=== PATIENT | male | born 1950 | race Two or more races ===

== ENCOUNTER 2017-01-24 13:06 | Inpatient (IN) | payer MEDICARE, MEDICAID ==
[~2017-01-24] VITALS: Ht 172.7 cm; Wt 79.8 kg
[2017-01-24] MEDS ORDERED: IPRATROPIUM BROMIDE 0.5 MG/2.5 ML NEBU NEB ONE (13:28)
[2017-01-24] MEDS ORDERED: methylPREDNISolone SOD SUCC 40 MG/ML VIAL IV ONE (13:30)
[2017-01-24] MEDS ORDERED: ALBUTEROL SULFATE 2.5 MG/3 ML NEBU NEB ONE (13:30)
[2017-01-24] MEDS ORDERED: IV NORMAL SALINE 500 ML IV ONE (13:30)
[2017-01-24] MEDS ORDERED: methylPREDNISolone SOD SUCC 40 MG/ML VIAL ONE (13:52)
--- NOTE | 2017-01-24 14:12 | NUR ---
PT REFUSED ABG AND BLOOD WORK.
--- NOTE | 2017-01-24 14:12 | NUR ---
DR READ MAKE AWARE OF PT'S REFUSAL.
[2017-01-24] MEDS ORDERED: ACET325C PO (14:41)
[2017-01-24] MEDS ORDERED: GABA100C PO (14:41)
[2017-01-24] MEDS ORDERED: MULT1TAB73 PO (14:41)
[2017-01-24] MEDS ORDERED: LEVE250T2 PO (14:41)
[2017-01-24] MEDS ORDERED: ATOR40TA PO (14:41)
[2017-01-24] MEDS ORDERED: CARV12.5 PO (14:41)
[2017-01-24] MEDS ORDERED: [UNRECOGNIZED DRUG - CODE] PO (14:41)
[2017-01-24] MEDS ORDERED: FAMO20TA8 PO (14:41)
[2017-01-24] MEDS ORDERED: FURO-152 PO (14:41)
[2017-01-24] MEDS ORDERED: TAMS0.4C34 PO (14:41)
[2017-01-24] MEDS ORDERED: SACC250C PO (14:41)
[2017-01-24] MEDS ORDERED: CALC500T3 PO (14:41)
[2017-01-24] MEDS ORDERED: THIA100T13 PO (14:41)
[2017-01-24] MEDS ORDERED: BENA10TA2 PO (14:41)
[2017-01-24] MEDS ORDERED: INSU100V7 SQ (14:41)
[2017-01-24] MEDS ORDERED: MELA3TAB PO (14:41)
[2017-01-24] MEDS ORDERED: LOSA100T15 PO (14:41)
[2017-01-24] MEDS ORDERED: ACET325T53 PO (14:41)
[2017-01-24] MEDS ORDERED: CYAN500T2 PO (14:41)
[2017-01-24] MEDS ORDERED: HYDR-3326 PO (14:41)
--- NOTE | 2017-01-24 14:45 | NUR ---
PT PROVIDED SNACK
--- NOTE | 2017-01-24 16:00 | NUR ---
PT RESTING COMFORTABLY
--- NOTE | 2017-01-24 19:53 | NUR ---
Pt. admitted to TELE, under care of Dr. Bagley Belongs List completed
--- NOTE | 2017-01-24 19:55 | NUR ---
PT RECEIVED FROM ED, VIA [employer]. ORIENTED TO ROOM. A/OX2. ABLE TO MAKE NEEDS KNOWN. V/S STABLE. IN NO ACUTE DISTRESS. NO C/O PAIN AT THIS TIME. IV INTACT AND PATENT. ON RA, TOLERATING WELL. SINUS RHYTHM ON THE TELE MONITOR. SAFETY MEASURES IMPLEMENTED. CALL LIGHT WITHIN REACH.
[2017-01-24 21:07] VITALS: BP 156/92
[2017-01-24] MEDS: BLOOD SUGAR DIAGNOSTIC 1 EACH STRIP VI SCH (21:45)
[2017-01-24] MEDS ORDERED: ACETAMINOPHEN 325 MG TABLET PO PRN (21:45)
[2017-01-24] MEDS ORDERED: Medication Not On Formulary EA (Saccharomyces Boulardii (Florastor) 250 MG) PO SCH (21:45)
[2017-01-24] MEDS ORDERED: CALCIUM CARBONATE 500 MG TABLET PO PRN (21:45)
[2017-01-24] MEDS ORDERED: ALBUTEROL SULFATE 2.5 MG/ 0.5 ML NEBU NEB PRN (21:45)
[2017-01-24] MEDS ORDERED: ONDANSETRON 4 MG/2 ML VIAL IV PRN (21:45)
[2017-01-24] MEDS ORDERED: IPRATROPIUM BROMIDE 0.5 MG/2.5 ML NEBU NEB PRN (21:45)
[2017-01-24] MEDS ORDERED: DEXTROSE 50% 50 ML DISP.SYRIN IV PRN (21:45)
[2017-01-25 00:02] VITALS: BP 133/80
[2017-01-25] MEDS: HYDROCODONE/APAP 5-325MG TABLET PO PRN (04:24)
[2017-01-25] MEDS ORDERED: HYDROCODONE/APAP 5-325MG TABLET ONE (04:37)
[2017-01-25 04:53] VITALS: BP 127/71
--- NOTE | 2017-01-25 05:50 | NUR ---
END OF SHIFT NOTES. PT SLEPT WELL THROUGHOUT SHIFT. IN STABLE CONDITION. PT C/O LEFT SIDED PAIN AND BACK PAIN. ADMINISTERED PAIN MEDICATION ORDERED. SINUS RHYTHM ON TELE MONITOR. ALL NEEDS ATTENDED. SAFETY MAINTAINED. CALL LIGHT WITHIN REACH.
[2017-01-25] MEDS: BLOOD SUGAR DIAGNOSTIC 1 EACH STRIP VI SCH ×4 (06:17→20:47)
[2017-01-25 06:31] LABS: BASOPHILS % (AUTO) 0.2 % (0.0-2.0); HEMATOCRIT 38.3 % (36.7-47.1); LYMPHOCYTES # (AUTO) 1.1 K/uL (20.0-40.0); LYMPHOCYTES % (AUTO) 17.9 % (20.5-51.5); MEAN CORPUSCULAR HEMOGLOBIN 29.5 uug (23.8-33.4); MEAN CORPUSCULAR HGB CONC 34 g/dL (32.5-36.3); MONOCYTES # (AUTO) 0.4 K/uL (2.0-10.0); MONOCYTES % (AUTO) 5.9 % (0.0-11.0); NEUTROPHILS # (AUTO) 4.8 K/uL (1.8-8.9); PLATELET COUNT (AUTO) 227 K/uL (152-348); RED BLOOD CELL COUNT(AUTO) 4.41 MIL/uL (4.06-5.63); WHITE BLOOD COUNT (AUTO) 6.3 K/uL (3.6-10.2)
[2017-01-25 06:56] LABS: CREATININE 1.1 mg/dL (0.6-1.3); MAGNESIUM 2.1 mg/dL (1.8-2.4); PHOSPHOROUS 3.2 mg/dL (2.5-4.9); POTASSIUM 4.3 mmol/L (3.5-5.1)
[2017-01-25] MEDS: GABAPENTIN 100 MG CAPSULE PO SCH ×3 (08:10→16:37)
[2017-01-25] MEDS: THIAMINE HCL 100 MG TABLET PO SCH (08:10)
[2017-01-25] MEDS: FAMOTIDINE 20 MG TABLET PO SCH (08:10)
[2017-01-25] MEDS: CARVEDILOL 12.5 MG TABLET PO SCH ×2 (08:11→16:38)
[2017-01-25] MEDS: CYANOCOBALAMIN 1,000 MCG TABLET PO SCH (08:11)
[2017-01-25] MEDS: FUROSEMIDE 20 MG TABLET PO SCH (08:11)
[2017-01-25] MEDS: LOSARTAN POTASSIUM 50 MG TABLET PO SCH (08:11)
[2017-01-25] MEDS: LEVETIRACETAM 250 MG TABLET PO SCH ×2 (08:12→20:42)
[2017-01-25] MEDS: ACIDOPHILUS/BULGARICUS CHEW TAB PO SCH ×3 (08:12→16:42)
[2017-01-25] MEDS: INSULIN REGULAR, HUMAN 300 UNIT/3 ML VIAL SQ PRN ×3 (08:13→16:39)
[2017-01-25] MEDS: Z GUARD REMEDY PASTE 57 GM TUBE TOP PRN (08:15)
[2017-01-25] MEDS ORDERED: Medication Not On Formulary EA (Losartan Potassium 100 MG) PO SCH (09:00)
[2017-01-25] MEDS ORDERED: Medication Not On Formulary EA (Cyanocobalamin (Vitamin B-12) 500 MCG) PO SCH (09:00)
[2017-01-25 10:59] VITALS: BP 102/65
[2017-01-25 15:09] VITALS: BP 117/59
[2017-01-25 19:41] VITALS: BP 100/58
[2017-01-25 19:44] VITALS: BP 100/58
[2017-01-25] MEDS: MELATONIN 3 MG TABLET PO SCH (20:42)
[2017-01-25] MEDS: ATORVASTATIN 40 MG TABLET PO SCH (20:42)
[2017-01-25] MEDS: TAMSULOSIN HCL 0.4 MG CAP.SR.24H PO SCH (20:42)
[2017-01-25] MEDS: INSULIN REGULAR, HUMAN 300 UNITS/3 ML VIAL SQ PRN (20:49)
[2017-01-25] MEDS: BENAZEPRIL HCL 10 MG TABLET PO SCH (20:53)
[2017-01-25] MEDS: INSULIN DETEMIR 300 UNIT/3 ML CARTRIDGE SQ SCH (21:37)
[2017-01-26 06:14] VITALS: BP 141/48
[2017-01-26] MEDS: ACIDOPHILUS/BULGARICUS CHEW TAB PO SCH ×3 (07:25→15:57)
[2017-01-26] MEDS: INSULIN REGULAR, HUMAN 300 UNIT/3 ML VIAL SQ PRN ×3 (07:27→15:58)
--- NOTE | 2017-01-26 07:30 | NUR ---
PT RECEIVED IN BED AWAKE,NO C/O PAIN NOTED,V/S ARE STABLE.CALL LIGHT WITH IN REACH.
[2017-01-26] MEDS: BLOOD SUGAR DIAGNOSTIC 1 EACH STRIP VI SCH ×5 (07:39→23:46)
[2017-01-26] MEDS: THIAMINE HCL 100 MG TABLET PO SCH (08:48)
[2017-01-26] MEDS: FUROSEMIDE 20 MG TABLET PO SCH (08:48)
[2017-01-26] MEDS: GABAPENTIN 100 MG CAPSULE PO SCH ×3 (08:48→17:08)
[2017-01-26] MEDS: LEVETIRACETAM 250 MG TABLET PO SCH ×2 (08:48→22:35)
[2017-01-26] MEDS: CYANOCOBALAMIN 1,000 MCG TABLET PO SCH (08:49)
[2017-01-26] MEDS: CARVEDILOL 12.5 MG TABLET PO SCH ×2 (08:49→17:08)
[2017-01-26] MEDS: FAMOTIDINE 20 MG TABLET PO SCH (08:49)
[2017-01-26] MEDS: LOSARTAN POTASSIUM 50 MG TABLET PO SCH (08:49)
[2017-01-26 11:11] VITALS: BP 128/64
[2017-01-26 15:11] VITALS: BP 105/54
--- NOTE | 2017-01-26 19:20 | NUR ---
REPORT GIVEN BY ADRIA GUILLAUME. RECEIVED PT LAYING IN BED WATCHING TV. HE DENIES PAIN,RESP ARE EVEN, NONLABORED.PLAN OF CARE AND CALL LIGHT REVIEWED WITH PT. CALL LIGHT IS WITHIN REACH, BED ALARM IS ON WILL MAINTAIN HOURLY SAFETY ROUNDS.
[2017-01-26 20:00] VITALS: BP 109/55
[2017-01-26] MEDS: INSULIN DETEMIR 300 UNIT/3 ML CARTRIDGE SQ SCH ×2 (21:00→23:45)
[2017-01-26] MEDS: ATORVASTATIN 40 MG TABLET PO SCH (22:35)
[2017-01-26] MEDS: MELATONIN 3 MG TABLET PO SCH (22:35)
[2017-01-26] MEDS: BENAZEPRIL HCL 10 MG TABLET PO SCH (22:36)
[2017-01-26] MEDS: TAMSULOSIN HCL 0.4 MG CAP.SR.24H PO SCH (22:36)
[2017-01-27 06:24] VITALS: BP 94/50
[2017-01-27] MEDS: ACIDOPHILUS/BULGARICUS CHEW TAB PO SCH ×3 (06:55→16:19)
--- NOTE | 2017-01-27 07:10 | NUR ---
BEDSIDE REPORT GIVEN TO ADRIA GUILLAUME. PT SLEPT APPROX 4 HRS, HE DENIES PAIN OR DISCOMFORT, BLOOD GLUCOSE AND VS ARE WNL.
[2017-01-27] MEDS: BLOOD SUGAR DIAGNOSTIC 1 EACH STRIP VI SCH ×4 (07:43→21:41)
--- NOTE | 2017-01-27 07:45 | NUR ---
PT RECEIVED IN BED AWAKE,NO C/O PAIN NOTED,V/S ARE STABLE.CALL LIGHT WITH IN REACH.
[2017-01-27] MEDS: CARVEDILOL 12.5 MG TABLET PO SCH ×2 (08:00→17:34)
[2017-01-27] MEDS: GABAPENTIN 100 MG CAPSULE PO SCH ×3 (08:01→16:19)
[2017-01-27] MEDS: FAMOTIDINE 20 MG TABLET PO SCH (08:01)
[2017-01-27] MEDS: LEVETIRACETAM 250 MG TABLET PO SCH ×2 (08:02→21:41)
[2017-01-27] MEDS: THIAMINE HCL 100 MG TABLET PO SCH (08:02)
[2017-01-27] MEDS: CYANOCOBALAMIN 1,000 MCG TABLET PO SCH (08:02)
[2017-01-27] MEDS: FUROSEMIDE 20 MG TABLET PO SCH (08:57)
[2017-01-27] MEDS: LOSARTAN POTASSIUM 50 MG TABLET PO SCH (08:57)
[2017-01-27] MEDS: INSULIN REGULAR, HUMAN 300 UNIT/3 ML VIAL SQ PRN ×2 (11:18→21:35)
[2017-01-27 12:54] VITALS: BP 95/45
[2017-01-27 12:55] VITALS: BP 95/45
[2017-01-27 16:14] VITALS: BP 105/57
[2017-01-27 20:00] VITALS: BP 100/53
[2017-01-27] MEDS ORDERED: hydrALAZINE HCL 25 MG TABLET PO PRN (20:45)
[2017-01-27] MEDS: Z GUARD REMEDY PASTE 57 GM TUBE TOP PRN (21:18)
[2017-01-27] MEDS: INSULIN DETEMIR 300 UNIT/3 ML CARTRIDGE SQ SCH (21:40)
[2017-01-27] MEDS: TAMSULOSIN HCL 0.4 MG CAP.SR.24H PO SCH (21:41)
[2017-01-27] MEDS: MELATONIN 3 MG TABLET PO SCH (21:41)
[2017-01-27] MEDS: ATORVASTATIN 40 MG TABLET PO SCH (21:41)
[2017-01-28 04:00] VITALS: BP 105/44
[2017-01-28 06:23] VITALS: BP 105/44
[2017-01-28 06:30] LABS: BASOPHILS % (AUTO) 0.7 % (0.0-2.0); EOSINOPHILS # (AUTO) 0.3 K/uL (0.0-0.7); EOSINOPHILS % (AUTO) 4.2 % (0.0-7.0); HEMATOCRIT 38.5 % (36.7-47.1); HEMOGLOBIN 12.9 g/dL (12.5-16.3); LYMPHOCYTES # (AUTO) 2.4 K/uL (20.0-40.0); LYMPHOCYTES % (AUTO) 38.8 % (20.5-51.5); MEAN CORPUSCULAR HEMOGLOBIN 29.2 uug (23.8-33.4); MEAN CORPUSCULAR HGB CONC 34 g/dL (32.5-36.3); MEAN CORPUSCULAR VOLUME 86.9 fL (73.0-96.2); MONOCYTES # (AUTO) 0.5 K/uL (2.0-10.0); MONOCYTES % (AUTO) 7.5 % (0.0-11.0); NEUTROPHILS # (AUTO) 3.1 K/uL (1.8-8.9); NEUTROPHILS % (AUTO) 48.8 % (38.5-71.5); RED BLOOD CELL COUNT(AUTO) 4.43 MIL/uL (4.06-5.63); WHITE BLOOD COUNT (AUTO) 6.3 K/uL (3.6-10.2)
[2017-01-28 06:39] LABS: CREATININE 1.3 mg/dL (0.6-1.3); POTASSIUM 4.2 mmol/L (3.5-5.1)
[2017-01-28] MEDS: BLOOD SUGAR DIAGNOSTIC 1 EACH STRIP VI SCH ×4 (06:45→21:00)
[2017-01-28] MEDS: ACIDOPHILUS/BULGARICUS CHEW TAB PO SCH ×3 (06:45→17:08)
--- NOTE | 2017-01-28 07:40 | NUR ---
client in bed awake. able to express his needs.
[2017-01-28] MEDS: CARVEDILOL 12.5 MG TABLET PO SCH ×2 (08:00→18:00)
--- NOTE | 2017-01-28 09:00 | NUR ---
client is compliant with care, compliant with medications.
[2017-01-28] MEDS: FAMOTIDINE 20 MG TABLET PO SCH (09:13)
[2017-01-28] MEDS: FUROSEMIDE 20 MG TABLET PO SCH (09:14)
[2017-01-28] MEDS: CYANOCOBALAMIN 1,000 MCG TABLET PO SCH (09:14)
[2017-01-28] MEDS: THIAMINE HCL 100 MG TABLET PO SCH (09:14)
[2017-01-28] MEDS: LEVETIRACETAM 250 MG TABLET PO SCH ×2 (09:15→20:20)
[2017-01-28] MEDS: GABAPENTIN 100 MG CAPSULE PO SCH ×3 (09:18→17:08)
[2017-01-28 09:23] LABS: PLATELET COUNT (AUTO) 218 K/uL (152-348)
[2017-01-28 11:47] VITALS: BP 111/79
[2017-01-28] MEDS: INSULIN REGULAR, HUMAN 300 UNIT/3 ML VIAL SQ PRN ×2 (12:47→17:14)
--- NOTE | 2017-01-28 13:00 | NUR ---
client in bed, watching television. no s/s of pain, distress or discomfort.
[2017-01-28 16:25] VITALS: BP 106/62
--- NOTE | 2017-01-28 17:30 | NUR ---
client in bed awake, help BP medication. has been compliant with all nursing care
--- NOTE | 2017-01-28 19:39 | NUR ---
client in bed awake, report given to warehouse shift supervisor. no s/s of pain, distress, discomfort or SOB, resting comfortably
--- NOTE | 2017-01-28 19:45 | NUR ---
RECEIVED IN BED ALERT ORIENTED, NO COMPLAIN OF PAIN AT THIS TIME. NO S/S OF HYPO/HYPERGLYCEMIA, KEPT CLEAN AND DRY. CONT TO MONITOR.
[2017-01-28 20:00] VITALS: BP 98/69
[2017-01-28] MEDS: ATORVASTATIN 40 MG TABLET PO SCH (20:20)
[2017-01-28] MEDS: MELATONIN 3 MG TABLET PO SCH (20:21)
[2017-01-28] MEDS: TAMSULOSIN HCL 0.4 MG CAP.SR.24H PO SCH (20:21)
[2017-01-28] MEDS: INSULIN DETEMIR 300 UNIT/3 ML CARTRIDGE SQ SCH (21:00)
--- NOTE | 2017-01-28 22:00 | NUR ---
PATIENT REFUSED ACCU CHECK, OFFERED X 3 REFUSED, REFUSED LEVIMER INSULIN ALSO. CONT TO MONITOR.
[2017-01-29] MEDS: BLOOD SUGAR DIAGNOSTIC 1 EACH STRIP VI SCH ×4 (05:57→21:21)
[2017-01-29 06:39] VITALS: BP 99/56
--- NOTE | 2017-01-29 07:02 | NUR ---
PATIENT SLEPT MOST OF THE NIGHT, NO COMPLAIN OF PAIN, KEPT CLEAN AND DRY, CONT TO MONITOR.
--- NOTE | 2017-01-29 07:20 | NUR ---
PT RECEIVED IN BED AWAKE,NO C/O PAIN NOTED,V/S ARE STABLE.CALL LIGHT WITH IN REACH.
[2017-01-29] MEDS: CARVEDILOL 12.5 MG TABLET PO SCH ×2 (08:00→17:09)
[2017-01-29] MEDS: THIAMINE HCL 100 MG TABLET PO SCH (08:04)
[2017-01-29] MEDS: FUROSEMIDE 20 MG TABLET PO SCH (08:04)
[2017-01-29] MEDS: FAMOTIDINE 20 MG TABLET PO SCH (08:04)
[2017-01-29] MEDS: LEVETIRACETAM 250 MG TABLET PO SCH ×2 (08:05→21:06)
[2017-01-29] MEDS: CYANOCOBALAMIN 1,000 MCG TABLET PO SCH (08:05)
[2017-01-29] MEDS: GABAPENTIN 100 MG CAPSULE PO SCH ×3 (08:05→16:00)
[2017-01-29] MEDS: ACIDOPHILUS/BULGARICUS CHEW TAB PO SCH ×3 (08:24→15:45)
[2017-01-29 11:32] VITALS: BP 106/57
[2017-01-29] MEDS: INSULIN REGULAR, HUMAN 300 UNIT/3 ML VIAL SQ PRN (12:07)
[2017-01-29 16:15] VITALS: BP 109/56
[2017-01-29 20:46] VITALS: BP 100/52
[2017-01-29] MEDS: TAMSULOSIN HCL 0.4 MG CAP.SR.24H PO SCH (21:06)
[2017-01-29] MEDS: ATORVASTATIN 40 MG TABLET PO SCH (21:06)
[2017-01-29] MEDS: MELATONIN 3 MG TABLET PO SCH (21:06)
[2017-01-29] MEDS: INSULIN REGULAR, HUMAN 300 UNITS/3 ML VIAL SQ PRN (21:11)
[2017-01-29] MEDS: INSULIN DETEMIR 300 UNIT/3 ML CARTRIDGE SQ SCH (21:12)
[2017-01-30 04:19] VITALS: BP 98/53
[2017-01-30] MEDS: ACIDOPHILUS/BULGARICUS CHEW TAB PO SCH (06:51)
[2017-01-30] MEDS: BLOOD SUGAR DIAGNOSTIC 1 EACH STRIP VI SCH (06:52)
[2017-01-30] MEDS: HYDROCODONE/APAP 5-325MG TABLET PO PRN (06:52)
[2017-01-30] MEDS: INSULIN REGULAR, HUMAN 300 UNIT/3 ML VIAL SQ PRN (07:20)
--- NOTE | 2017-01-30 07:43 | NUR ---
PT RECEIVED IN BED AWAKE,NO C/O PAIN NOTED,V/S ARE STABLE.CALL LIGHT WITH IN REACH.
[2017-01-30 08:00] VITALS: BP 98/53
[2017-01-30] MEDS: CARVEDILOL 12.5 MG TABLET PO SCH (08:00)
[2017-01-30] MEDS: FUROSEMIDE 20 MG TABLET PO SCH (08:06)
[2017-01-30] MEDS: LEVETIRACETAM 250 MG TABLET PO SCH (08:07)
[2017-01-30] MEDS: THIAMINE HCL 100 MG TABLET PO SCH (08:07)
[2017-01-30] MEDS: FAMOTIDINE 20 MG TABLET PO SCH (08:07)
[2017-01-30] MEDS: CYANOCOBALAMIN 1,000 MCG TABLET PO SCH (08:07)
[2017-01-30] MEDS: GABAPENTIN 100 MG CAPSULE PO SCH (08:07)
--- NOTE | 2017-01-30 10:20 | NUR ---
D/C ORDERS RECEIVED NOTED AND CARRIED OUT,D/C HE[place]OCK PER MD ORDERS.D/C INSTRUCTIONS GIVEN TO THE PT,PT LEFT THE FACILITY VIA AMBULANCES IN STABLE CONDITION.
== END 2017-01-30 10:20 | DRG 917 ==
LOC: ER 13:08 → TELE 19:47 → MED 01-25 10:00
PROVIDERS: ADMIT Internal Medicine; ATTEND Internal Medicine
DX: T59.811A Toxic effect of smoke, accidental (unintentional), initial encounter (principal); R53.2 Functional quadriplegia; E11.22 Type 2 diabetes mellitus with diabetic chronic kidney disease; I69.351 Hemiplegia and hemiparesis following cerebral infarction affecting right dominant side; F03.90 Unspecified dementia, unspecified severity, without behavioral disturbance, psychotic disturbance, mood disturbance, and anxiety; Y92.129 Unspecified place in nursing home as the place of occurrence of the external cause; E78.5 Hyperlipidemia, unspecified; F32.9 Major depressive disorder, single episode, unspecified; G40.909 Epilepsy, unspecified, not intractable, without status epilepticus; M10.9 Gout, unspecified; N18.9 Chronic kidney disease, unspecified; I12.9 Hypertensive chronic kidney disease with stage 1 through stage 4 chronic kidney disease, or unspecified chronic kidney disease; N18.2 Chronic kidney disease, stage 2 (mild); N40.0 Benign prostatic hyperplasia without lower urinary tract symptoms; R06.03 Acute respiratory distress; Z79.4 Long term (current) use of insulin
CPT/HCPCS: 36415; 71010; 83735; 84100; 85025; 93005; A4663; J1815; J2920; J7040